=== PATIENT | female | born 1970 | race Two or more races ===

== ENCOUNTER 2020-04-18 15:58 | Observation (INO) ==
[2020-04-18 17:34] LABS: ABS Basophils 0.1 10^3/ul (0-0.2); ABS Eosinophils 0.1 10^3/ul (0-0.6); ABS Lymphocytes 3.1 10^3/ul (1.0-4.8); ABS Monocytes 0.7 10^3/ul (0-0.8); ABS Neutrophils 6.1 10^3/ul (1.5-7.7); Eosinophil % 0.7 %; Hematocrit 37 % (35-47); Hemoglobin 12.5 g/dL (12.0-16.0); Lymphocyte % 30.9 %; Mean Corpuscular HGB Conc 34 g/dL (31-36); Mean Corpuscular Hemoglobin 28 pg (27-31); Mean Corpuscular Volume 84 fL (80-97); Mean Platelet Volume 8.4 fL (7.4-10.4); Platelet Count 236 10^3/uL (150-450); Red Blood Count 4.44 10^6 /uL (3.70-4.87); Red Cell Distribution Width 15 % (10-15)
[2020-04-18] MEDS ORDERED: Glycopyrrolate IV 0.2 MG/ML 1 ML VIAL ONE (17:43)
[2020-04-18] MEDS ORDERED: Propofol 10 MG/ML 20 ML BTL ONE ×2 (17:43→18:18)
[2020-04-18] MEDS ORDERED: fentaNYL 100 mcg/2 ml 50 MCG/ML VIAL ONE (17:43)
[2020-04-18] MEDS ORDERED: Succinylcholine 200 mg VIAL 20 mg/ml 10 ml VIAL (200 mg) ONE (17:43)
[2020-04-18] MEDS ORDERED: Rocuronium 50 mg VIAL 10 mg/ml 5 ml VIAL (50 mg) ONE (17:46)
[2020-04-18 17:51] LABS: BUN/Creatinine Ratio 34.4 (8-20); C Reactive Protein 6.44 mg/L (<8.01); Calcium 9.1 mg/dL (8.6-10.3); EGFR African American 125.6 (>60); EGFR Non-African American 103.8 (>60); Potassium 3.7 mmol/L (3.5-5.0)
[2020-04-18] MEDS ORDERED: Zosyn 3.375 GM IV - ED ONCE IV ONE (18:00)
[2020-04-18] MEDS ORDERED: Phenylephrine 40 mcg/mL 10mL (400mcg) SYRINGE ONE (18:27)
[2020-04-18] MEDS ORDERED: Esmolol 10 MG/ML 10 ML (100 mg) ONE (18:40)
[2020-04-18] MEDS ORDERED: Ondansetron 4 mg VIAL 2 MG/ML 2 ml VIAL ONE (18:42)
[2020-04-18] MEDS ORDERED: Dexamethasone IV 4 MG/ML VIAL 1 ml VIAL ONE (18:42)
[2020-04-18] MEDS ORDERED: Sugammadex 500 MG/5 ML 5 ml VIAL IV PUSH ONE (18:43)
[2020-04-18] MEDS ORDERED: Labetalol IV 5 MG/ML 20 ml VIAL ONE (18:45)
[2020-04-18] MEDS ORDERED: Ondansetron 4 mg VIAL 2 MG/ML 2 ml VIAL IV PRN (18:58)
[2020-04-18] MEDS ORDERED: NS 0.9% 1000 ml BAG 1,000 ML IV SCH (19:15)
[2020-04-18] MEDS ORDERED: HYDROmorphone 1 MG/1 ML SYRINGE ONE (19:17)
[2020-04-18] MEDS ORDERED: Acetaminophen IV 1 GM/100ML 100 ML ONE (19:17)
[2020-04-18] MEDS: oxyCODONE/Acetamin 5/325 mg TAB PO PRN (19:45)
[2020-04-18] MEDS ORDERED: Naloxone 0.4 mg VIAL 0.4 mg/ml 1 ml VIAL IV PRN (19:49)
[2020-04-18] MEDS: Piperacillin/Tazobactam VIAL 3.375 GM in NS 0.9% 100 ml BAG 100 ML IVPB SCH (22:48)
[2020-04-19] MEDS: oxyCODONE/Acetamin 5/325 mg TAB PO PRN ×3 (00:14→08:39)
[2020-04-19 00:37] LABS: Urine Appearance Clear; Urine Bilirubin Negative (Negative); Urine Blood Negative (Negative); Urine Color Yellow; Urine Glucose Negative (Negative); Urine Ketones Negative (Negative); Urine Nitrite Negative (Negative); Urine Protein 1+(30 mg/dL) (Negative); Urine Specific Gravity 1.034 (1.010-1.030); Urine Urobilinogen Positive (Negative)
[2020-04-19 00:48] LABS: Urine Bacteria Absent (Absent); Urine Red Blood Cell 2+(6-10/hpf) (Absent); Urine Squamous Epithelial Cell Present (Absent); Urine White Blood Cell Trace(0-5/hpf) (Absent)
[2020-04-19] MEDS: Piperacillin/Tazobactam VIAL 3.375 GM in NS 0.9% 100 ml BAG 100 ML IVPB SCH (06:22)
[2020-04-19 07:29] VITALS: BP 140/67
== END 2020-04-19 11:40 | disposition home or self-care (01) ==
LOC: ED 15:58 → OR 19:19 → INTOOBSV 21:13 → SSU 21:13
PROVIDERS: ADMIT Surgery; ATTEND Surgery

== ENCOUNTER 2021-01-27 09:00 | Inpatient (IN) ==
[~2021-01-27 09:00] MED LIST: Buffered Lidocaine 1% SYRIN 1 ml INTRADERM ONE; Dexamethasone IV 4 MG/ML VIAL 1 ml VIAL IV SLOW PU ONE; Famotidine IV 10 MG/ML 2 ml VIAL (20 mg) IV ONE; Lactated Ringers 1000 ml BAG 1,000 ML IV SCH
[2021-01-27] MEDS ORDERED: Famotidine IV 10 MG/ML 2 ml VIAL (20 mg) ONE (10:04)
[2021-01-27] MEDS ORDERED: Buffered Lidocaine 1% SYRIN 1 ml INTRADERM ONE (10:04)
[2021-01-27] MEDS ORDERED: Dexamethasone IV 4 MG/ML VIAL 1 ml VIAL ONE (10:04)
[2021-01-27] MEDS ORDERED: ceFAZolin 2 GM PREMIX 2 GM/50 ML BAG ONE (10:04)
[2021-01-27] MEDS ORDERED: Propofol 10 mg/ml 100 ML BTL 0 ML ONE (10:18)
[2021-01-27] MEDS ORDERED: Glycopyrrolate IV 0.2 MG/ML 1 ML VIAL ONE (10:18)
[2021-01-27] MEDS ORDERED: Lidocaine 2% PF 5 ML VIAL ONE (10:19)
[2021-01-27] MEDS ORDERED: Morphine 4 MG/ML VIAL (1 ml) IV PRN (11:17)
[2021-01-27] MEDS ORDERED: Naloxone 0.4 mg VIAL 0.4 mg/ml 1 ml VIAL IV PRN (11:17)
[2021-01-27] MEDS ORDERED: Prochlorperazine 5 mg/ml 2 ml VIAL (10 mg) IV PRN (11:17)
[2021-01-27] MEDS ORDERED: ROPIVACAINE 5 MG/ML 30 ML BTL (0.5%) ONE ×2 (11:33→12:16)
[2021-01-27] MEDS ORDERED: Midazolam 5 mg/5 ml VIAL 1 mg/ml 5 ml VIAL (5 mg) ONE (11:43)
[2021-01-27] MEDS ORDERED: fentaNYL 100 mcg/2 ml 50 MCG/ML VIAL ONE ×5 (11:44→16:11)
[2021-01-27] MEDS ORDERED: HYDROmorphone 1 MG/1 ML SYRINGE ONE (11:50)
[2021-01-27] MEDS ORDERED: Rocuronium 50 mg VIAL 10 mg/ml 5 ml VIAL (50 mg) ONE (11:51)
[2021-01-27] MEDS ORDERED: Ondansetron 4 mg VIAL 2 MG/ML 2 ml VIAL ONE (11:51)
[2021-01-27] MEDS ORDERED: Labetalol IV 5 MG/ML 20 ml VIAL ONE (12:54)
[2021-01-27] MEDS ORDERED: Phenylephrine IV 10 MG/ML 1 ml VIAL ONE (13:01)
[2021-01-27] MEDS ORDERED: Lactulose 30 ml UDC PO PRN (13:51)
[2021-01-27] MEDS ORDERED: Magnesium Hydroxide LIQ 30 ML UDC PO PRN (13:51)
[2021-01-27] MEDS ORDERED: Ondansetron 4 mg VIAL 2 MG/ML 2 ml VIAL IV PRN (13:51)
[2021-01-27] MEDS ORDERED: diPHENhydraMINE 25 mg TAB PO PRN (13:51)
[2021-01-27] MEDS ORDERED: Ondansetron ODT 4 mg TAB 4 MG TAB PO PRN (13:51)
[2021-01-27] MEDS ORDERED: diPHENhydraMINE IV 50 MG/ML 1 ml VIAL (BENADRYL) IV PRN (13:51)
[2021-01-27] MEDS: fentaNYL 100 mcg/2 ml 50 MCG/ML VIAL IV PRN ×5 (15:03→16:12)
[2021-01-27] MEDS: Morphine 2 MG/ML SYRINGE IV PRN ×2 (17:27→21:41)
[2021-01-27] MEDS: ceFAZolin 1 GM ADVAN 1 GM in NS 0.9% 50 ML 50 ML IVPB SCH (18:10)
[2021-01-27] MEDS: Lactated Ringers 1000 ml BAG 1,000 ML IV SCH (18:14)
[2021-01-27] MEDS: Magnesium Hydroxide LIQ 30 ML UDC PO SCH (20:10)
[2021-01-28] MEDS: ceFAZolin 1 GM ADVAN 1 GM in NS 0.9% 50 ML 50 ML IVPB SCH ×2 (02:13→10:10)
[2021-01-28] MEDS: Morphine 2 MG/ML SYRINGE IV PRN ×2 (02:13→08:37)
[2021-01-28 05:23] LABS: Hematocrit 29 % (35-47); Hemoglobin 9.6 g/dL (12.0-16.0); Mean Platelet Volume 8.3 fL (7.4-10.4); Platelet Count 162 10^3/uL (150-450)
[2021-01-28] MEDS: Lactated Ringers 1000 ml BAG 1,000 ML IV SCH (05:29)
[2021-01-28 05:51] LABS: Calcium 8.5 mg/dL (8.6-10.3); EGFR African American 144.6 (>60); EGFR Non-African American 119.5 (>60); Potassium 3.9 mmol/L (3.5-5.0)
[2021-01-28] MEDS: Magnesium Hydroxide LIQ 30 ML UDC PO SCH (08:50)
[2021-01-28] MEDS ORDERED: Nicotine PATCH 21 MG/24 HR PATCH TRANSDERM SCH (09:00)
[2021-01-28] MEDS ORDERED: Vitamin THERAPEUTIC TAB PO SCH (09:00)
[2021-01-28 11:01] VITALS: BP 142/50
== END 2021-01-28 12:20 | disposition home health service (06) | DRG 302 ==
LOC: AA 10:43 → SSU 13:51
PROVIDERS: ADMIT Orthopaedic Surgery Adult Reconstructive Orthopaedic Surgery; ATTEND Orthopaedic Surgery Adult Reconstructive Orthopaedic Surgery

== ENCOUNTER 2021-10-31 11:22 | Inpatient (IN) ==
[~2021-10-31 11:22] MED LIST changes: -Dexamethasone IV 4 MG/ML VIAL 1 ml VIAL IV SLOW PU ONE; -Famotidine IV 10 MG/ML 2 ml VIAL (20 mg) IV ONE
[2021-10-31] MEDS ORDERED: ceFAZolin 1 GM ADVAN 1 GM ADDV.VIAL IVPB ONE (12:39)
[2021-10-31] MEDS ORDERED: Lidocaine 1% MPF 5 ML VIAL ONE ×2 (12:47→13:18)
[2021-10-31] MEDS ORDERED: Midazolam 2 mg/2 ml VIAL 1 mg/ml 2 ml VIAL (2 mg) ONE (12:49)
[2021-10-31] MEDS ORDERED: Lidocaine 2% PF 5 ML VIAL ONE (12:50)
[2021-10-31] MEDS ORDERED: Propofol 10 MG/ML 20 ML BTL ONE ×3 (12:50→17:12)
[2021-10-31] MEDS ORDERED: fentaNYL 250 mcg/5 ml 50 MCG/ML 5 ml VIAL (250 MCG) ONE ×2 (12:50→15:47)
[2021-10-31] MEDS ORDERED: ROPIVACAINE 5 MG/ML 30 ML BTL (0.5%) ONE (13:18)
[2021-10-31] MEDS ORDERED: Rocuronium 50 mg VIAL 10 mg/ml 5 ml VIAL (50 mg) ONE (14:43)
[2021-10-31] MEDS ORDERED: Ondansetron 4 mg VIAL 2 MG/ML 2 ml VIAL IV PRN ×2 (15:09→15:48)
[2021-10-31] MEDS ORDERED: Acetaminophen IV 1 GM/100ML 100 ML IV PRN (15:09)
[2021-10-31] MEDS ORDERED: fentaNYL 100 mcg/2 ml 50 MCG/ML VIAL IV PRN (15:09)
[2021-10-31] MEDS ORDERED: Naloxone 0.4 mg VIAL 0.4 mg/ml 1 ml VIAL IV PRN (15:09)
[2021-10-31] MEDS ORDERED: DiMENhydriNATE IV 50 mg/ml 1 ml VIAL IV PUSH PRN (15:09)
[2021-10-31] MEDS ORDERED: Dexamethasone IV 4 MG/ML VIAL 1 ml VIAL ONE (15:24)
[2021-10-31] MEDS ORDERED: Ondansetron 4 mg VIAL 2 MG/ML 2 ml VIAL ONE (15:24)
[2021-10-31] MEDS ORDERED: HYDROmorphone 0.5 MG/0.5 ML SYRINGE ONE (15:24)
[2021-10-31] MEDS ORDERED: Sugammadex 500 MG/5 ML 5 ml VIAL IV PUSH ONE (15:30)
[2021-10-31] MEDS ORDERED: diPHENhydraMINE 25 mg TAB PO PRN (15:48)
[2021-10-31] MEDS ORDERED: oxyCODONE/Acetamin 5/325 mg TAB PO PRN (15:48)
[2021-10-31] MEDS ORDERED: Lactulose 30 ml UDC PO PRN (15:48)
[2021-10-31] MEDS ORDERED: diPHENhydraMINE IV 50 MG/ML 1 ml VIAL (BENADRYL) IV PRN (15:48)
[2021-10-31] MEDS ORDERED: Magnesium Hydroxide LIQ 30 ML UDC PO PRN (15:48)
[2021-10-31] MEDS ORDERED: Ondansetron ODT 4 mg TAB 4 MG TAB PO PRN (15:48)
[2021-10-31] MEDS ORDERED: Lactated Ringers 1000 ml BAG 1,000 ML IV SCH (16:00)
[2021-10-31] MEDS ORDERED: Acetaminophen IV 1 GM/100ML 100 ML IV ONE (16:42)
[2021-10-31] MEDS ORDERED: HYDROmorphone 1 MG/1 ML SYRINGE ONE ×2 (17:37→19:31)
[2021-10-31] MEDS: HYDROmorphone 1 MG/1 ML SYRINGE IV PRN ×5 (17:38→18:10)
[2021-10-31] MEDS: HYDROmorphone 1 MG/1 ML SYRINGE IV SLOW PU PRN ×3 (19:32→19:53)
[2021-10-31] MEDS: Magnesium Hydroxide LIQ 30 ML UDC PO SCH (22:16)
[2021-10-31] MEDS: ceFAZolin 1 GM ADVAN 1 GM in NS 0.9% 50 ML 50 ML IVPB SCH (23:41)
[2021-11-01 06:49] LABS: Hematocrit 30 % (35-47); Hemoglobin 9.9 g/dL (12.0-16.0); Mean Platelet Volume 8.4 fL (7.4-10.4); Platelet Count 231 10^3/uL (150-450)
[2021-11-01 07:15] LABS: Calcium 8.7 mg/dL (8.6-10.3); Potassium 4.3 mmol/L (3.5-5.0); eGFR CKD-EPI 106.9 (>60)
[2021-11-01] MEDS ORDERED: Morphine ER 15 mg TAB ** extended release PO SCH (07:30)
[2021-11-01] MEDS: ceFAZolin 1 GM ADVAN 1 GM in NS 0.9% 50 ML 50 ML IVPB SCH ×2 (07:37→15:25)
[2021-11-01] MEDS: Magnesium Hydroxide LIQ 30 ML UDC PO SCH (07:38)
[2021-11-01] MEDS ORDERED: Vitamin THERAPEUTIC TAB PO SCH (09:00)
[2021-11-01] MEDS ORDERED: CMCS:Lamotrigine XR 200 mg TAB (NF) PO SCH (09:00)
[2021-11-01] MEDS ORDERED: LAMOTRIGINE 250 MG PO SCH (09:00)
[2021-11-01 11:06] VITALS: BP 137/69
== END 2021-11-01 15:49 | disposition home or self-care (01) | DRG 470 ==
LOC: MCHOB 11:22 → INTOOBSV 12:04 → AA 12:04 → SSU 19:31
PROVIDERS: ADMIT Orthopaedic Surgery Adult Reconstructive Orthopaedic Surgery; ATTEND Orthopaedic Surgery Adult Reconstructive Orthopaedic Surgery